=== PATIENT | female | born 1985 | race African-American/Black ===

== ENCOUNTER → 2024-11-03 | Day surgery (SDC) | payer OTHER, BC ==
[~2024-11-03] MED LIST: ACETAMINOPHEN 1000 MG/100 ML 100 ML IV ONE; BUPIVACAINE/EPI 0.5% 30ML SDV-MPF INJ ONE; DEXAMETHASONE SOD PHOS INJ 4 MG/ML SDV ONE; EPINEPHRINE HCL 1:1000 1ML 1 MG/ML AMP ONE; FENTANYL CITRATE/PF 100MCG/2 ML INJ ONE; LIDOCAINE HCL 2% LOCAL INJ 5 ML SDV VIAL INJ ONE; MIDAZOLAM HCL 2 MG/2 ML VIAL ONE; ONDANSETRON HCL INJ 2MG/ML 2ML 2 MG/ML VIAL ONE; PROPOFOL IV EMULSION 10 MG/ML 20 ML VIAL ONE; VIT D PO
[2024-11-03] MEDS: CEFAZOLIN SODIUM 2 GM ONE (10:15)
[2024-11-03] MEDS: LACTATED RINGER'S 1,000 ML ONE (10:15)
[2024-11-03 13:17] VITALS: TEMP 98.8
[2024-11-03] MEDS: HYDROMORPHONE 1MG/1ML INJ ONE ×2 (13:30→13:45)
[2024-11-03 14:45] VITALS: BP 132/74; PULSE 68; RESP 18; O2SAT 98
== END | disposition home or self-care (01) ==
LOC: OR 09:57
PROVIDERS: ATTEND Podiatrist Foot & Ankle Surgery
DX: M72.2 Plantar fascial fibromatosis (principal); G58.8 Other specified mononeuropathies; J45.909 Unspecified asthma, uncomplicated; E66.01 Morbid (severe) obesity due to excess calories
CPT/HCPCS: 28039; 64704; 81025; 88304; J0131; J1100; J1171; J2003; J2250; J2405; J2704; J3010; J7121; J0171